=== PATIENT | male | born 1970 | race African-American/Black ===

== ENCOUNTER → 2020-11-07 13:06 | Outpatient (CLI) | payer OTHER, SELFPAY | PROVIDERS: Visit Provider Physician Assistant | DX: Z11.52 Encounter for screening for COVID-19 (principal) | CPT/HCPCS: 87635; U0005; U0003 ==

== ENCOUNTER 2021-04-24 13:27 | Outpatient (CLI) | payer OTHER, SELFPAY ==
--- NOTE | 2021-04-24 11:50 | ASPS_PTH ---
PATIENT: KING KIRBY DEE LOC: LAB U#:[id number] AGE/SX: 51/M ROOM: RE04/24/[address]: Dr. Eduin Gan MD : 1970 BED: DIS: 04/24/2021 SPEC #: [id number] RECD: 04/24/21 12:55 STATUS: VASHTI CACERESAlejandro #: [id number] LINDSAY: 04/24/21 11:[address]: Eduin Gan DEPT: CYTOLOGY RECD BY: Thalia Cunningham Tissues: Thyroid gland, NOS Procedures: Special Stain Group II Cytology Other HEADER OPERATION: Right thyroid fine needle aspiration PRE-OP DIAGNOSIS: Right thyroid nodules TISSUE SUBMITTED: Right thyroid slides x6 DIAGNOSIS CYTOLOGY Right thyroid nodule, fine needle aspiration (smears): Consistent with benign follicular/colloid nodule. Adequate for evaluation. See comment. ISAAC:elizabeth 04/25/2021 COMMENT Correlation with clinical, radiologic findings and appropriate follow up are necessary. CYTOLOGY STUDY Slides are reviewed. CYTOLOGY GROSS Received are six smears labeled with the patient's name and designated per the requisition as right thyroid. Submitted for staining. / elizabeth 04/24/3021 TC:5 CPT: 04416
== END 2021-04-24 23:59 | disposition home or self-care (01) ==
LOC: LAB 13:28
PROVIDERS: Visit Provider Surgery
DX: E04.1 Nontoxic single thyroid nodule (principal)
CPT/HCPCS: 88161; 88313

== ENCOUNTER → 2021-07-28 | Outpatient (CLI) | payer OTHER, SELFPAY ==
[2021-07-28 16:22] LABS: Thyroid Stim Hormone (TSH) 0.38 uIU/mL (0.358-3.74)
[2021-07-30 20:58] LABS: Thyroid Peroxidase AB < 8 IU/mL (0-34)
--- NOTE | 2021-11-01 11:01 | US_ITS ---
STUDY: THYROID ULTRASOUND REASON FOR EXAM: Male, 51 years old. thyroid nodule TECHNIQUE: Ultrasound evaluation of the thyroid was performed with real-time and static lucero-scale imaging. COMPARISON: 04/18/2021 FINDINGS: RIGHT LOBE: The right lobe of the thyroid gland measures 6.0 x 2.4 x 2.0 cm. There is a heterogeneous echotexture. Nodule 1: No change in the 10 x 10 x 11 mm solid hypoechoic taller than wide ill-defined marginated nodule with no echogenic foci (TR 5) in the posterior right lobe for which ultrasound-guided biopsy is recommended. Some small colloid cysts in the right lobe. LEFT LOBE: The left lobe of the thyroid gland measures 5.9 x 2.3 x 1.7 cm. There is a heterogeneous echotexture. There are no demonstrated solid, cystic or complex lesions. ISTHMUS: The isthmus measures 5 mm thick. . The regional lymph nodes are normal. US/Thyroid IMPRESSION: Thyroiditis with no change in the dominant nodule in the posterior right lobe for which ultrasound-guided biopsy is recommended if never performed. Follow-up ultrasound is recommended in one year. Electronically Signed: Magan Montejo MD at 17:14 EDT ,
== END | disposition home or self-care (01) ==
LOC: BIMLAB 11:41
PROVIDERS: Referring Provider Internal Medicine Endocrinology, Diabetes & Metabolism; Visit Provider Internal Medicine Endocrinology, Diabetes & Metabolism
DX: E04.1 Nontoxic single thyroid nodule (principal)
CPT/HCPCS: 36415; 84439; 84443; 86376

== ENCOUNTER → 2021-11-01 | Outpatient (CLI) | payer OTHER, SELFPAY | END | disposition home or self-care (01) | LOC: US 11-03 09:29 | PROVIDERS: Visit Provider Internal Medicine Endocrinology, Diabetes & Metabolism | DX: E04.1 Nontoxic single thyroid nodule (principal) | CPT/HCPCS: 76536 ==